=== PATIENT | male | born 1980 | race Caucasian/White ===

== ENCOUNTER 2021-10-12 17:01 | Emergency (ER) | payer OTHER ==
[2021-10-12 17:48] LABS: Absolute Lymphocytes (CBC) 2.1 K/uL (0.7-4.9); Hematocrit 48.2 % (39.6-49.0); MCV 86.5 fL (80-100); MPV 7.8 fL (7.6-11.3); RBC Red Blood Cell Count 5.58 M/uL (4.33-5.43)
[2021-10-12 18:11] LABS: Potassium 3.5 mmol/L (3.5-5.1)
[2021-10-12 18:12] LABS: Troponin High Sensitivity 3.5 pg/mL (<58.9)
--- NOTE | 2021-10-12 18:33 | EDPHYS ---
Physician Documentation [facility] Name: Carlos Joshua Age: 40 yrs Sex: Male : 1980 Arrival Date: 10/12/2021 Time: 17:03 Bed 15 Private MD: ED Physician Alfonso Joshua HPI: 10/12 17:19 This 40 yrs old Male presents to ER via Ambulatory with complaints of High Blood jm Pressure. 17:19 The patient has elevated blood pressure and discovered this at a physician's office, [facility] and sent to the emergency department for evaluation. Onset: The symptoms/episode began/occurred at an unknown time. Modifying factors: The symptoms are aggravated by. Associated signs and symptoms: The patient has no apparent associated signs or symptoms. The patient has experienced a previous episode. Historical: - Allergies: 17:10 Sulfa (Sulfonamide Antibiotics); hb - Home Meds: 17:10 Zyrtec Oral [Active]; hb - PMHx: 17:11 None; hb - PSHx: 17:10 Shoulder - Left; hb - Immunization history:: Adult Immunizations up to date, Client reports receiving the 2nd dose of the Covid vaccine. - Social history:: Smoking status: Patient denies any tobacco usage or history of. ROS: 17:19 Constitutional: Negative for fever, chills, and weight loss, Cardiovascular: Negative jmm for chest pain, palpitations, and edema, Respiratory: Negative for shortness of breath, cough, wheezing, and pleuritic chest pain, Neuro: Negative for headache, weakness, numbness, tingling, and seizure. 17:19 All other systems are negative. Exam: 17:19 Constitutional: This is a well developed, well nourished patient who is awake, alert, jmm and in no acute distress. Head/Face: atraumatic. Eyes: EOMI, no conjunctival erythema appreciated ENT: Moist Mucus Membranes Neck: Trachea midline, Supple Chest/axilla: Normal chest wall appearance and motion. Cardiovascular: Regular rate and rhythm. No edema appreciated Respiratory: Normal respirations, no respiratory distress appreciated Abdomen/GI: Non distended Back: Normal ROM Skin: General appearance color normal MS/ Extremity: Moves all extremities, no obvious deformities appreciated, no edema noted to the lower extremities Neuro: Awake and alert Psych: Behavior is normal, Mood is normal, Patient is cooperative and pleasant 17:42 ECG was reviewed by the Attending Physician. [facility] Vital Signs: 17:08 BP 187 / 127; Pulse 93; Resp 18; Temp 97.3(TE); Pulse Ox 98% on R/A; Weight 116.12 kg; hb Height 5 ft. 11 in. (180.34 cm); Pain 0/10; 17:42 BP 174 / 109; Pulse 76; Resp 15; Pulse Ox 96% on R/A; eh3 17:08 Body Mass Index 35.70 (116.12 kg, 180.34 cm) hb MDM: 17:19 Patient medically screened. [facility] 18:30 Data reviewed: vital signs, nurses notes. Counseling: I had a detailed discussion with [facility] the patient and/or guardian regarding: the historical points, exam findings, and any diagnostic results supporting the discharge/admit diagnosis, lab results, the need for outpatient follow up, to return to the emergency department if symptoms worsen or persist or if there are any questions or concerns that arise at home. 10/12 17:20 Order name: Basic Metabolic Panel; Complete Time: 18:13 [facility] 10/12 17:20 Order name: CBC with Diff; Complete Time: 17:54 [facility] 10/12 17:20 Order name: Troponin HS; Complete Time: 18:13 [facility] 10/12 17:20 Order name: EKG; Complete Time: 17:21 [facility] 10/12 17:20 Order name: Cardiac monitoring; Complete Time: 17:21 [facility] 10/12 17:20 Order name: EKG - Nurse/Tech; Complete Time: 17:41 [facility] 10/12 17:20 Order name: IV Saline Lock; Complete Time: 17:41 [facility] 10/12 17:20 Order name: Labs collected and sent; Complete Time: 17:42 [facility] 10/12 17:20 Order name: O2 Per Protocol; Complete Time: 17:21 [facility] 10/12 17:20 Order name: O2 Sat Monitoring; Complete Time: 17:21 [facility] EC:42 Rate is 80 beats/min. Rhythm is regular. QRS Condon is Normal. PA interval is normal. QRS jmm interval is normal. QT interval is normal. No Q waves. T waves are Normal. No ST changes noted. Reviewed by me. Administered Medications: No medications were administered Disposition: 22:47 Co-signature as Attending Physician, Alfonso Joshua DO I was immediately available on-site ms3 in the Emergency Department for consultation in the care of the patient.. Disposition Summary: 10/12/21 18:32 Discharge Ordered Location: Home [facility] Condition: Stable jmm Diagnosis - Hypertension jmm Followup: jmm - With: Private Physician - When: 2 - 3 days - Reason: Recheck today's complaints, Continuance of care, Re-evaluation by your physician Discharge Instructions: - Discharge Summary Sheet jm - Hypertension, Adult jmm Forms: - Medication Reconciliation Form jm - Thank You Letter jmm - Antibiotic Education jmm - Prescription Opioid Use jm Prescriptions: - Hydrochlorothiazide 12.5 mg Oral Tablet - take 1 tablet by ORAL route once daily; 30 tablet; Refills: 0, Product jm Selection Permitted Signatures: Dispatcher [employer] EDMS Chaz Ramires PA PA jmm Baxter, Heather, RN RN Alfonso Griffin DO DO ms3 Corrections: (The following items were deleted from the chart) 17:21 17:20 BASIC METABOLIC PANEL+C.LAB.BRZ ordered. EDMS EDMS 17:21 17:20 CBC+H.LAB.BRZ ordered. EDMS EDMS 17:21 17:20 Troponin High Sensitivity+C.LAB.BRZ ordered. EDMS EDMS
--- NOTE | 2021-10-12 18:33 | ER ---
Nurse's Notes [facility] Name: Carlos Joshua Age: 40 yrs Sex: Male : 1980 Arrival Date: 10/12/2021 Time: 17:03 Bed 15 Private MD: Diagnosis: Hypertension Presentation: 10/12 17:08 Chief complaint: Sent from PCP office for 220/110. Reports lingering cough since he had hb COVID last month. Denies pain/SOB/CP/fever. Coronavirus screen: Client presents with at least one sign or symptom that may indicate coronavirus-19. Standard/surgical mask placed on the client. Provider contacted for isolation considerations. Ebola Screen: No symptoms or risks identified at this time. Initial Sepsis Screen: Does the patient meet any 2 criteria? No. Patient's initial sepsis screen is negative. Does the patient have a suspected source of infection? No. Patient's initial sepsis screen is negative. Risk Assessment: Do you want to hurt yourself or someone else? Patient reports no desire to harm self or others. Onset of symptoms was October 12, 2021. 17:08 Method Of Arrival: Ambulatory hb 17:08 Acuity: STACEY 3 hb Triage Assessment: 17:11 General: Appears in no apparent distress. Behavior is calm, cooperative. Pain: Denies hb pain. Neuro: Level of Consciousness is awake, alert, obeys commands, Oriented to person, place, time, situation. Cardiovascular: Patient's skin is warm and dry. Respiratory: Respiratory effort is even, unlabored, Respiratory pattern is regular, symmetrical. Historical: - Allergies: 17:10 Sulfa (Sulfonamide Antibiotics); hb - Home Meds: 17:10 Zyrtec Oral [Active]; hb - PMHx: 17:11 None; hb - PSHx: 17:10 Shoulder - Left; hb - Immunization history:: Adult Immunizations up to date, Client reports receiving the 2nd dose of the Covid vaccine. - Social history:: Smoking status: Patient denies any tobacco usage or history of. Screenin:43 Abuse screen: Denies threats or abuse. Denies injuries from another. Nutritional eh3 screening: No deficits noted. Tuberculosis screening: No symptoms or risk factors identified. Fall Risk None identified. Assessment: 17:43 Reassessment: No changes from previously documented assessment. eh3 Vital Signs: 17:08 BP 187 / 127; Pulse 93; Resp 18; Temp 97.3(TE); Pulse Ox 98% on R/A; Weight 116.12 kg; hb Height 5 ft. 11 in. (180.34 cm); Pain 0/10; 17:42 BP 174 / 109; Pulse 76; Resp 15; Pulse Ox 96% on R/A; eh3 17:08 Body Mass Index 35.70 (116.12 kg, 180.34 cm) ED Course: 17:03 Patient arrived in ED. as 17:07 Chaz Ramires PA is PHCP. [facility] 17:07 Alfonso Joshua DO is Attending Physician. [facility] 17:10 Triage completed. hb 17:11 Arm band placed on. 17:16 Lorena Diggs is Primary Nurse. eh3 17:32 Inserted saline lock: 20 gauge in right antecubital area, using aseptic technique. eh3 Blood collected. 17:42 Basic Metabolic Panel Sent. 3 17:42 CBC with Diff Sent. eh3 17:42 Troponin HS Sent. eh3 17:43 Patient has correct armband on for positive identification. Bed in low position. Call 3 light in reach. Side rails up X2. 18:44 No provider procedures requiring assistance completed. IV discontinued, intact, eh3 bleeding controlled, No redness/swelling at site. Pressure dressing applied. Administered Medications: No medications were administered Medication: 18:45 VIS not applicable for this client. ld1 Outcome: 18:32 Discharge ordered by . [facility] 18:45 Discharged to home ambulatory. ld1 18:45 Condition: stable 18:45 Discharge instructions given to patient, Instructed on discharge instructions, follow up and referral plans. Demonstrated understanding of instructions, follow-up care. 18:45 Patient left the ED. ld1 Signatures: Chaz Ramires PA PA jmm Martinez, Amelia as Baxter, Heather, RN RN Tanya Rm RN RN ld1 Lorena Diggs [facility]
[2021-10-12 18:51] VITALS: TEMP 97.3
[2021-10-12 18:52] VITALS: BP 174/109; O2SAT 96
--- NOTE | 2021-10-13 07:22 | EKG ---
Test Date: 2021-10-12 Test Time: 17:39:12 Illustrator Set: PASHA MEASUREMENT RESULTS: Intervals: Rate: 80 DC: 156 QRSD: 92 QT: 372 QTc: 429 Sparks: P: 48 DC: 156 QRS: 72 T: 58 INTERPRETIVE STATEMENTS: Normal sinus rhythm Normal ECG No previous ECG available for comparison Electronically Signed On 10-13-21 07:20:32 CDT by Obdulio Patel
== END 2021-10-12 18:45 | disposition home or self-care (01) ==
LOC: ER 17:01
DX: I10 Essential (primary) hypertension (principal); R05.9 Cough, unspecified; Z88.2 Allergy status to sulfonamides
CPT/HCPCS: 36415; 80048; 84484; 85025; 93005